=== PATIENT | female | born 2000 | race African-American/Black ===

== ENCOUNTER 2019-05-31 02:40 | Emergency (ER) | payer MEDICAID ==
[~2019-05-31] VITALS: Ht 170.2 cm; Wt 59.0 kg
[2019-05-31 02:44] VITALS: BP 95/65
== END 2019-05-31 10:07 | disposition left against medical advice (07) ==
LOC: ER 02:40
DX: Z53.21 Procedure and treatment not carried out due to patient leaving prior to being seen by health care provider (principal)

== ENCOUNTER 2021-01-08 13:19 | Emergency (ER) | payer OTHER, MEDICAID ==
[~2021-01-08] VITALS: Ht 162.6 cm; Wt 75.0 kg
[2021-01-08] MEDS ORDERED: ACETAMINOPHEN 325MG TABLET PO ONE (14:45)
[2021-01-08 15:42] LABS: BASOPHILS % 0.2 % (0.0-2.0); EOSINOPHILS % 0.4 % (0.0-5.0); HEMATOCRIT. 33.7 % (36.0-48.0); HEMOGLOBIN. 10.9 g/dL (12.0-16.0); LYMPHOCYTES % 8.6 % (20.0-50.0); MEAN CORPUSCULAR HEMOGLOBIN 28.1 pg (28.0-32.0); MEAN CORPUSCULAR VOLUME 86.9 fL (81.0-99.0); MEAN PLATELET VOLUME 8.7 fl (7.4-10.4); MONOCYTES % 6.4 % (2.0-8.0); NEUTROPHILS % 84.4 % (40.0-76.0); PLATELET 313 x1000/uL (130-400); RED BLOOD CELL COUNT 3.88 mill/uL (4.2-5.4); RED CELL DISTRIBUTION WIDTH 15.2 % (11.6-14.6)
[2021-01-08 15:46] LABS: CHLORIDE 107 mEq/L (98-107)
[2021-01-08 16:01] LABS: HCG SCREEN NEGATIVE
[2021-01-08] MEDS ORDERED: MORPHINE SULFATE 10 MG/ML CPJ IM ONE ×2 (16:45→18:45)
[2021-01-08 17:04] LABS: CLARITY URINE CLEAR (CLEAR); COLOR URINE YELLOW (YELLOW); KETONES URINE NEGATIVE (NEGATIVE); LEUKOCYTE ESTERASE URINE NEGATIVE (NEGATIVE); NITRITE URINE NEGATIVE (NEGATIVE); OCCULT BLOOD URINE NEGATIVE (NEGATIVE); PH URINE 8.5 (4.5-8.0); PROTEIN URINE NEGATIVE (NEGATIVE); SPECIFIC GRAVITY URINE 1.007 (1.005-1.030); UROBILINOGEN URINE 0.2 E.U./dL (0.2-1.0)
[2021-01-08] MEDS ORDERED: IOHEXOL-300 100 ML BOTTLE ONE (20:13)
[2021-01-08 20:16] VITALS: BP 127/88
[2021-01-10 19:06] LABS: NEISSERIA GONORRHOEAE NAA Negative (Negative)
== END 2021-01-08 21:50 | disposition home or self-care (01) ==
LOC: ER 13:19
DX: N83.201 Unspecified ovarian cyst, right side (principal); F12.10 Cannabis abuse, uncomplicated; E66.9 Obesity, unspecified; Z68.28 Body mass index [BMI] 28.0-28.9, adult
CPT/HCPCS: 36415; 74177; 76830; 76856; 80053; 81003; 83690; 84703; 85025; 87491; 87591; 96372; 99285; J2270; Q9967